=== PATIENT | female | born 1975 | race Caucasian/White ===

== ENCOUNTER 2018-05-24 14:28 | Inpatient (IN) | payer MEDICAID, OTHER ==
[2018-05-24] MEDS: diphenhydrAMINE 50 MG CAP PO (13:53)
[2018-05-24] MEDS: LORazepam 1 MG TAB PO (13:53)
[2018-05-24 14:40] LABS: HEMATOCRIT 43.9 % (36.0-47.0); HEMOGLOBIN 14.9 g/dl (12.0-15.5); MEAN CORPUSCULAR HEMOGLOBIN 30.4 pg (27.0-33.0); MEAN CORPUSCULAR HGB CONC 33.9 g/dl (32.0-36.5); MEAN CORPUSCULAR VOLUME 89.6 fl (80.0-96.0); PLATELET COUNT, AUTOMATED 424 10^3/uL (150-450); RED CELL DISTRIBUTION WIDTH 13.6 % (11.5-14.5); WHITE BLOOD COUNT 13.3 10^3/uL (4.0-10.0)
[2018-05-24 14:55] LABS: CONTROL LINE HCG INT CTR LINE PRESENT; HCG, SERUM QUALITATIVE NEGATIVE (NEGATIVE)
[2018-05-24 14:59] LABS: ACETAMINOPHEN LEVEL < 2.0 UG/ML (10.0-30.0); ALBUMIN/GLOBULIN RATIO 1.21 (1.00-1.93); ALKALINE PHOSPHATASE 83 U/L (45-117); ALT/SGPT 41 U/L (12-78); ANION GAP 7 MEQ/L (8-16); AST/SGOT 19 U/L (7-37); BILIRUBIN,DIRECT 0.1 MG/DL (0.0-0.2); BILIRUBIN,TOTAL 0.5 MG/DL (0.2-1.0); BLOOD UREA NITROGEN 10 MG/DL (7-18); CALCIUM LEVEL 9.1 MG/DL (8.5-10.1); CARBON DIOXIDE LEVEL 28 MEQ/L (21-32); CHLORIDE LEVEL 99 MEQ/L (98-107); CREATININE FOR GFR 0.88 MG/DL (0.55-1.30); GLOMERULAR FILTRATION RATE > 60.0 (>58); GLUCOSE, FASTING 145 MG/DL (70-100); POTASSIUM SERUM 3.5 MEQ/L (3.5-5.1); SODIUM LEVEL 134 MEQ/L (136-145); TOTAL PROTEIN 7.3 GM/DL (6.4-8.2)
[2018-05-24 15:04] LABS: AMPHETAMINES LEVEL URINE NEGATIVE (NEGATIVE); BARBITURATES URINE NEGATIVE (NEGATIVE); BENZODIAZEPINES URINE NEGATIVE (NEGATIVE); CANNABINOIDS URINE NEGATIVE (NEGATIVE); COCAINE METABOLITE URINE NEGATIVE (NEGATIVE); METHADONE URINE POSITIVE (NEGATIVE); OPIATES URINE POSITIVE (NEGATIVE); PHENCYCLIDINE URINE NEGATIVE (NEGATIVE)
[2018-05-24 16:10] LABS: FREE T4 0.65 NG/DL (0.76-1.46)
[2018-05-24] MEDS ORDERED: MOM 30ML SUSPENSION UDC PO (17:30)
[2018-05-24] MEDS ORDERED: ALBUTEROL 90 MCG/ACT 8GM HFA INHALER INH (19:45)
[2018-05-24] MEDS: SYMBICORT 160/4.5MCG INHALER 6GM INH (21:32)
[2018-05-24] MEDS: traZODone 50 MG TAB PO (21:32)
[2018-05-24] MEDS: risperiDONE 1 MG TAB PO (21:32)
[2018-05-24] MEDS: DIVALPROEX 500MG *ER* TAB PO (21:32)
[2018-05-24] MEDS: ATORVASTATIN 20 MG TAB PO (21:32)
[2018-05-24] MEDS: PANTOPRAZOLE 40MG TAB (PROTONIX) PO (21:32)
[2018-05-25] MEDS: LEVOTHYROXINE 150MCG TABLET (0.15MG) PO (06:33)
[2018-05-25] MEDS: NICOTINE 21MG/24HR 1 EA TRANSDERMAL TD (09:00)
[2018-05-25] MEDS: SYMBICORT 160/4.5MCG INHALER 6GM INH ×2 (09:43→20:38)
[2018-05-25] MEDS: DIVALPROEX 500MG *ER* TAB PO ×2 (09:43→20:36)
[2018-05-25] MEDS: PANTOPRAZOLE 40MG TAB (PROTONIX) PO ×2 (09:43→20:39)
[2018-05-25] MEDS: FAMOTIDINE 20 MG TAB PO (09:43)
[2018-05-25] MEDS: hydrOXYzine 50 MG TAB PO ×3 (16:17→20:39)
[2018-05-25] MEDS: traZODone 50 MG TAB PO ×2 (20:36→20:38)
[2018-05-25] MEDS: DIVALPROEX 250MG *ER* TAB PO (20:36)
[2018-05-25] MEDS: ATORVASTATIN 20 MG TAB PO (20:36)
[2018-05-25] MEDS: ACETAMINOPHEN TAB 650MG DOSE (2X325MG) PO (20:37)
[2018-05-25] MEDS: risperiDONE 1 MG TAB PO (20:38)
[2018-05-25] MEDS ORDERED: METHADONE 10 MG TAB (S0109) PO (21:45)
[2018-05-25] MEDS: METHADONE 5 MG TAB (S0109) PO (22:00)
[2018-05-26] MEDS: METHADONE 5 MG TAB (S0109) PO ×3 (00:17→11:14)
[2018-05-26] MEDS: OLANZapine ORAL DISINTEGRATING TAB 5MG PO ×4 (00:17→17:38)
[2018-05-26] MEDS: MAALOX 30 ML SUSP *UDC PO ×2 (00:17→18:29)
[2018-05-26] MEDS: LEVOTHYROXINE 150MCG TABLET (0.15MG) PO (05:44)
[2018-05-26] MEDS: ACETAMINOPHEN TAB 650MG DOSE (2X325MG) PO ×2 (05:48→20:15)
[2018-05-26 07:43] LABS: BASO % 0.5 % (0.0-1.0); EOS # 0.1 10^3/uL (0.0-0.50); EOS % 1.1 % (0.0-3.0); HEMATOCRIT 40.3 % (36.0-47.0); HEMOGLOBIN 13.9 g/dl (12.0-15.5); IMMATURE GRANULOCYTE % 0.4 % (0-3.0); LYMPH # 2.8 10^3/uL (1.5-4.5); LYMPH % 36.2 % (24.0-44.0); MEAN CORPUSCULAR HEMOGLOBIN 30.7 pg (27.0-33.0); MEAN CORPUSCULAR HGB CONC 34.5 g/dl (32.0-36.5); MONO # 0.7 10^3/uL (0.0-0.8); MONO % 8.8 % (0.0-5.0); NEUTROPHILS # 4.2 10^3/uL (1.8-7.7); PLATELET COUNT, AUTOMATED 370 10^3/uL (150-450); RED BLOOD COUNT 4.53 10^6/uL (4.00-5.40); RED CELL DISTRIBUTION WIDTH 13.9 % (11.5-14.5); WHITE BLOOD COUNT 7.9 10^3/uL (4.0-10.0)
[2018-05-26] MEDS: PANTOPRAZOLE 40MG TAB (PROTONIX) PO ×2 (08:06→20:12)
[2018-05-26] MEDS: FAMOTIDINE 20 MG TAB PO (08:06)
[2018-05-26] MEDS: DIVALPROEX 500MG *ER* TAB PO ×2 (08:07→20:12)
[2018-05-26] MEDS: NICOTINE 21MG/24HR 1 EA TRANSDERMAL TD ×2 (08:10→09:56)
[2018-05-26] MEDS: SYMBICORT 160/4.5MCG INHALER 6GM INH ×2 (08:10→20:13)
[2018-05-26 08:18] LABS: ALBUMIN 3.7 GM/DL (3.2-5.2); ALBUMIN/GLOBULIN RATIO 1.16 (1.00-1.93); ALKALINE PHOSPHATASE 69 U/L (45-117); ALT/SGPT 28 U/L (12-78); ANION GAP 10 MEQ/L (8-16); AST/SGOT 9 U/L (7-37); BILIRUBIN,TOTAL 0.3 MG/DL (0.2-1.0); BLOOD UREA NITROGEN 8 MG/DL (7-18); CALCIUM LEVEL 9.2 MG/DL (8.5-10.1); CARBON DIOXIDE LEVEL 28 MEQ/L (21-32); CHLORIDE LEVEL 103 MEQ/L (98-107); CREATININE FOR GFR 0.93 MG/DL (0.55-1.30); FREE THYROXINE INDEX 2.3 % (1.3-4.8); GLOMERULAR FILTRATION RATE > 60.0 (>58); GLUCOSE, FASTING 90 MG/DL (70-100); POTASSIUM SERUM 3.3 MEQ/L (3.5-5.1); SODIUM LEVEL 141 MEQ/L (136-145); T UPTAKE 34 % (30-39); THYROXINE (T4) 6.9 UG/DL (4.5-12.0); TOTAL PROTEIN 6.9 GM/DL (6.4-8.2)
[2018-05-26] MEDS: hydrOXYzine 50 MG TAB PO (13:59)
[2018-05-26] MEDS: ATORVASTATIN 20 MG TAB PO (20:12)
[2018-05-26] MEDS: DIVALPROEX 250MG *ER* TAB PO (20:12)
[2018-05-26] MEDS: risperiDONE 1 MG TAB PO (20:12)
[2018-05-26] MEDS: traZODone 50 MG TAB PO (20:12)
[2018-05-26] MEDS: METHADONE 10 MG TAB (S0109) PO (20:16)
[2018-05-27] MEDS: POTASSIUM CHLORIDE 10% LIQ 20 MEQ/15 ML UDC PO (00:15)
[2018-05-27] MEDS: LEVOTHYROXINE 150MCG TABLET (0.15MG) PO (06:04)
[2018-05-27] MEDS: SYMBICORT 160/4.5MCG INHALER 6GM INH ×2 (08:46→20:05)
[2018-05-27] MEDS: DIVALPROEX 500MG *ER* TAB PO ×2 (08:47→20:04)
[2018-05-27] MEDS: METHADONE 10 MG TAB (S0109) PO ×2 (08:47→20:05)
[2018-05-27] MEDS: FAMOTIDINE 20 MG TAB PO (08:47)
[2018-05-27] MEDS: PANTOPRAZOLE 40MG TAB (PROTONIX) PO ×2 (08:47→20:05)
[2018-05-27] MEDS: NICOTINE 21MG/24HR 1 EA TRANSDERMAL TD (08:47)
[2018-05-27 09:21] LABS: ANION GAP 10 MEQ/L (8-16); BLOOD UREA NITROGEN 7 MG/DL (7-18); CALCIUM LEVEL 9.6 MG/DL (8.5-10.1); CARBON DIOXIDE LEVEL 28 MEQ/L (21-32); CHLORIDE LEVEL 107 MEQ/L (98-107); CREATININE FOR GFR 1.09 MG/DL (0.55-1.30); GLOMERULAR FILTRATION RATE 57.8 (>58); GLUCOSE, FASTING 72 MG/DL (70-100); SODIUM LEVEL 145 MEQ/L (136-145)
[2018-05-27] MEDS: hydrOXYzine 50 MG TAB PO (11:55)
[2018-05-27] MEDS: OLANZapine ORAL DISINTEGRATING TAB 5MG PO (11:55)
[2018-05-27] MEDS: MAALOX 30 ML SUSP *UDC PO (12:33)
[2018-05-27] MEDS: risperiDONE 1 MG TAB PO (20:05)
[2018-05-27] MEDS: DIVALPROEX 250MG *ER* TAB PO (20:05)
[2018-05-27] MEDS: ATORVASTATIN 20 MG TAB PO (20:05)
[2018-05-28] MEDS: LEVOTHYROXINE 150MCG TABLET (0.15MG) PO (06:01)
[2018-05-28] MEDS: SYMBICORT 160/4.5MCG INHALER 6GM INH ×2 (08:17→20:09)
[2018-05-28] MEDS: NICOTINE 21MG/24HR 1 EA TRANSDERMAL TD (08:17)
[2018-05-28] MEDS: PANTOPRAZOLE 40MG TAB (PROTONIX) PO ×2 (08:18→20:07)
[2018-05-28] MEDS: DIVALPROEX 500MG *ER* TAB PO ×2 (08:18→20:08)
[2018-05-28] MEDS: METHADONE 10 MG TAB (S0109) PO ×2 (08:18→20:07)
[2018-05-28] MEDS: FAMOTIDINE 20 MG TAB PO (08:18)
[2018-05-28] MEDS: OLANZapine ORAL DISINTEGRATING TAB 5MG PO (11:01)
[2018-05-28] MEDS: hydrOXYzine 50 MG TAB PO (13:25)
[2018-05-28 14:18] LABS: ETHYL ALCOHOL (ETHANOL) < 0.003 % (0.000-0.010)
[2018-05-28] MEDS: ATORVASTATIN 20 MG TAB PO (20:07)
[2018-05-28] MEDS: DIVALPROEX 250MG *ER* TAB PO (20:07)
[2018-05-29] MEDS: LEVOTHYROXINE 150MCG TABLET (0.15MG) PO (06:00)
[2018-05-29] MEDS: FAMOTIDINE 20 MG TAB PO (08:01)
[2018-05-29] MEDS: DIVALPROEX 500MG *ER* TAB PO ×2 (08:01→20:08)
[2018-05-29] MEDS: METHADONE 10 MG TAB (S0109) PO ×2 (08:01→20:09)
[2018-05-29] MEDS: PANTOPRAZOLE 40MG TAB (PROTONIX) PO ×2 (08:01→20:08)
[2018-05-29] MEDS: SYMBICORT 160/4.5MCG INHALER 6GM INH ×2 (08:02→21:02)
[2018-05-29] MEDS: NICOTINE 21MG/24HR 1 EA TRANSDERMAL TD (08:03)
[2018-05-29] MEDS: ACETAMINOPHEN TAB 650MG DOSE (2X325MG) PO (11:02)
[2018-05-29] MEDS: OLANZapine ORAL DISINTEGRATING TAB 5MG PO ×2 (11:02→20:09)
[2018-05-29] MEDS: ARIPiprazole MONOHYDRATE 400 MG INJ (ABILIFY)(J0401) IM (11:40)
[2018-05-29] MEDS: hydrOXYzine 50 MG TAB PO (15:57)
[2018-05-29] MEDS: DIVALPROEX 250MG *ER* TAB PO (20:08)
[2018-05-29] MEDS: ATORVASTATIN 20 MG TAB PO (20:09)
[2018-05-29] MEDS: traZODone 50 MG TAB PO (20:09)
[2018-05-30] MEDS: LEVOTHYROXINE 150MCG TABLET (0.15MG) PO (06:24)
[2018-05-30] MEDS: DIVALPROEX 500MG *ER* TAB PO ×2 (08:12→20:08)
[2018-05-30] MEDS: SYMBICORT 160/4.5MCG INHALER 6GM INH ×2 (08:12→20:10)
[2018-05-30] MEDS: METHADONE 10 MG TAB (S0109) PO ×2 (08:12→20:08)
[2018-05-30] MEDS: PANTOPRAZOLE 40MG TAB (PROTONIX) PO ×2 (08:13→20:07)
[2018-05-30] MEDS: FAMOTIDINE 20 MG TAB PO (08:13)
[2018-05-30] MEDS: NICOTINE 21MG/24HR 1 EA TRANSDERMAL TD (08:13)
[2018-05-30] MEDS: OLANZapine ORAL DISINTEGRATING TAB 5MG PO ×2 (12:16→20:10)
[2018-05-30 12:54] LABS: VALPROIC ACID (DEPAKOTE) 94.1 UG/ML (50.0-100.0)
[2018-05-30] MEDS: DIVALPROEX 250MG *ER* TAB PO (20:07)
[2018-05-30] MEDS: ATORVASTATIN 20 MG TAB PO (20:07)
[2018-05-30] MEDS: traZODone 50 MG TAB PO (20:07)
[2018-05-30] MEDS: hydrOXYzine 50 MG TAB PO (21:50)
[2018-05-31] MEDS: LEVOTHYROXINE 150MCG TABLET (0.15MG) PO (06:18)
[2018-05-31] MEDS: OLANZapine ORAL DISINTEGRATING TAB 5MG PO (07:30)
[2018-05-31] MEDS: SYMBICORT 160/4.5MCG INHALER 6GM INH (08:01)
[2018-05-31] MEDS: NICOTINE 21MG/24HR 1 EA TRANSDERMAL TD (08:01)
[2018-05-31] MEDS: DIVALPROEX 500MG *ER* TAB PO (08:02)
[2018-05-31] MEDS: PANTOPRAZOLE 40MG TAB (PROTONIX) PO (08:02)
[2018-05-31] MEDS: FAMOTIDINE 20 MG TAB PO (08:02)
[2018-05-31] MEDS: METHADONE 10 MG TAB (S0109) PO (08:02)
== END 2018-05-31 13:00 | disposition home or self-care (01) | DRG 753 ==
LOC: M PSY 05-25 14:25 → M ED 14:28 → M ED INP 17:21 → M PSY 18:45
DX: F31.2 Bipolar disorder, current episode manic severe with psychotic features (principal); F11.10 Opioid abuse, uncomplicated; J45.909 Unspecified asthma, uncomplicated; K21.9 Gastro-esophageal reflux disease without esophagitis; E78.5 Hyperlipidemia, unspecified; E03.9 Hypothyroidism, unspecified; F10.10 Alcohol abuse, uncomplicated; K44.9 Diaphragmatic hernia without obstruction or gangrene; Z79.899 Other long term (current) drug therapy; Z88.0 Allergy status to penicillin; Z88.8 Allergy status to other drugs, medicaments and biological substances; Z88.2 Allergy status to sulfonamides; S82.62XD Displaced fracture of lateral malleolus of left fibula, subsequent encounter for closed fracture with routine healing; W17.89XD Other fall from one level to another, subsequent encounter; Y92.9 Unspecified place or not applicable

== ENCOUNTER 2018-07-01 17:06 | Inpatient (IN) | payer MEDICAID ==
[2018-07-01 18:12] LABS: HEMATOCRIT 38.2 % (36.0-47.0); HEMOGLOBIN 12.4 g/dl (12.0-15.5); MEAN CORPUSCULAR HEMOGLOBIN 30.5 pg (27.0-33.0); MEAN CORPUSCULAR HGB CONC 32.5 g/dl (32.0-36.5); MEAN CORPUSCULAR VOLUME 93.9 fl (80.0-96.0); PLATELET COUNT, AUTOMATED 295 10^3/uL (150-450); RED BLOOD COUNT 4.07 10^6/uL (4.00-5.40); RED CELL DISTRIBUTION WIDTH 14.8 % (11.5-14.5); WHITE BLOOD COUNT 7.5 10^3/uL (4.0-10.0)
[2018-07-01 18:27] LABS: AMPHETAMINES LEVEL URINE NEGATIVE (NEGATIVE); BARBITURATES URINE NEGATIVE (NEGATIVE); BENZODIAZEPINES URINE NEGATIVE (NEGATIVE); CANNABINOIDS URINE NEGATIVE (NEGATIVE); COCAINE METABOLITE URINE POSITIVE (NEGATIVE); METHADONE URINE NEGATIVE (NEGATIVE); OPIATES URINE POSITIVE (NEGATIVE); PHENCYCLIDINE URINE NEGATIVE (NEGATIVE)
[2018-07-01 18:39] LABS: ALBUMIN 3.6 GM/DL (3.2-5.2); ALBUMIN/GLOBULIN RATIO 1.33 (1.00-1.93); ALKALINE PHOSPHATASE 68 U/L (45-117); ALT/SGPT 20 U/L (12-78); ANION GAP 5 MEQ/L (8-16); AST/SGOT 15 U/L (7-37); BILIRUBIN,DIRECT 0.1 MG/DL (0.0-0.2); BILIRUBIN,TOTAL 0.4 MG/DL (0.2-1.0); BLOOD UREA NITROGEN 12 MG/DL (7-18); CALCIUM LEVEL 8.9 MG/DL (8.5-10.1); CARBON DIOXIDE LEVEL 27 MEQ/L (21-32); CHLORIDE LEVEL 108 MEQ/L (98-107); CREATININE FOR GFR 0.82 MG/DL (0.55-1.30); GLOMERULAR FILTRATION RATE > 60.0 (>58); GLUCOSE, FASTING 90 MG/DL (70-100); SODIUM LEVEL 140 MEQ/L (136-145); TOTAL PROTEIN 6.3 GM/DL (6.4-8.2)
[2018-07-01 18:43] LABS: CONTROL LINE HCG INT CTR LINE PRESENT; HCG, SERUM QUALITATIVE NEGATIVE (NEGATIVE)
[2018-07-01 18:44] LABS: ETHYL ALCOHOL (ETHANOL) < 0.003 % (0.000-0.010)
[2018-07-01 18:44] LABS: ACETAMINOPHEN LEVEL < 2.0 UG/ML (10.0-30.0); SALICYLATE LEVEL 3.1 MG/DL (5.0-30.0); THYROID STIMULATING HORMONE 0.964 uIU/ML (0.358-3.740)
[2018-07-01] MEDS ORDERED: MOM 30ML SUSPENSION UDC PO (23:00)
[2018-07-02] MEDS: OLANZapine ORAL DISINTEGRATING TAB 5MG PO ×2 (03:43→16:13)
[2018-07-02] MEDS ORDERED: ALBUTEROL 90 MCG/ACT 8GM HFA INHALER INH (11:00)
[2018-07-02] MEDS: SYMBICORT 160/4.5MCG INHALER 6GM INH ×2 (11:19→20:10)
[2018-07-02] MEDS: FAMOTIDINE 20 MG TAB PO ×2 (11:19→20:13)
[2018-07-02] MEDS: PANTOPRAZOLE 40MG TAB (PROTONIX) PO ×2 (11:20→20:11)
[2018-07-02] MEDS: ATORVASTATIN 20 MG TAB PO (11:20)
[2018-07-02] MEDS: LEVOTHYROXINE 150MCG TABLET (0.15MG) PO (11:20)
[2018-07-02] MEDS: METHADONE 10 MG TAB (S0109) PO (12:26)
[2018-07-02] MEDS: NICOTINE 21MG/24HR 1 EA TRANSDERMAL TD (17:29)
[2018-07-02] MEDS: traZODone 50 MG TAB PO (20:13)
[2018-07-02] MEDS: METHADONE 5 MG TAB (S0109) PO (22:39)
[2018-07-03] MEDS: ACETAMINOPHEN TAB 650MG DOSE (2X325MG) PO ×2 (03:30→13:02)
[2018-07-03] MEDS: LEVOTHYROXINE 150MCG TABLET (0.15MG) PO (06:45)
[2018-07-03] MEDS: SYMBICORT 160/4.5MCG INHALER 6GM INH ×2 (08:08→21:13)
[2018-07-03] MEDS: NICOTINE 21MG/24HR 1 EA TRANSDERMAL TD (08:08)
[2018-07-03] MEDS: ATORVASTATIN 20 MG TAB PO (08:09)
[2018-07-03] MEDS: FAMOTIDINE 20 MG TAB PO ×2 (08:09→21:13)
[2018-07-03] MEDS: METHADONE 10 MG TAB (S0109) PO ×2 (08:10→17:08)
[2018-07-03] MEDS: PANTOPRAZOLE 40MG TAB (PROTONIX) PO ×2 (08:10→21:12)
[2018-07-03] MEDS: MAALOX 30 ML SUSP *UDC PO (10:41)
[2018-07-03] MEDS: OLANZapine ORAL DISINTEGRATING TAB 5MG PO (10:51)
[2018-07-03] MEDS: cloNIDine 0.1 MG TAB PO ×2 (12:15→17:08)
[2018-07-03] MEDS: ONDANSETRON 4 MG TAB (S0181) PO ×2 (14:38→21:14)
[2018-07-03] MEDS: traZODone 50 MG TAB PO (21:12)
[2018-07-04] MEDS: cloNIDine 0.1 MG TAB PO ×5 (00:02→23:01)
[2018-07-04] MEDS: OLANZapine ORAL DISINTEGRATING TAB 5MG PO ×3 (00:03→23:32)
[2018-07-04] MEDS: LEVOTHYROXINE 150MCG TABLET (0.15MG) PO (06:16)
[2018-07-04] MEDS: FAMOTIDINE 20 MG TAB PO ×2 (09:42→21:13)
[2018-07-04] MEDS: PANTOPRAZOLE 40MG TAB (PROTONIX) PO ×2 (09:42→21:13)
[2018-07-04] MEDS: ATORVASTATIN 20 MG TAB PO (09:43)
[2018-07-04] MEDS: SYMBICORT 160/4.5MCG INHALER 6GM INH ×2 (09:44→21:13)
[2018-07-04] MEDS: NICOTINE 21MG/24HR 1 EA TRANSDERMAL TD (09:44)
[2018-07-04] MEDS: METHADONE 10 MG TAB (S0109) PO (09:45)
[2018-07-04] MEDS: traZODone 50 MG TAB PO (23:32)
[2018-07-05] MEDS: cloNIDine 0.1 MG TAB PO ×3 (06:00→17:21)
[2018-07-05] MEDS: LEVOTHYROXINE 150MCG TABLET (0.15MG) PO (06:30)
[2018-07-05] MEDS: OLANZapine ORAL DISINTEGRATING TAB 5MG PO ×3 (06:34→22:38)
[2018-07-05] MEDS: SYMBICORT 160/4.5MCG INHALER 6GM INH ×2 (08:05→21:20)
[2018-07-05] MEDS: FAMOTIDINE 20 MG TAB PO ×2 (08:05→21:19)
[2018-07-05] MEDS: PANTOPRAZOLE 40MG TAB (PROTONIX) PO ×2 (08:05→21:19)
[2018-07-05] MEDS: METHADONE 10 MG TAB (S0109) PO (08:05)
[2018-07-05] MEDS: ATORVASTATIN 20 MG TAB PO (08:05)
[2018-07-05] MEDS: NICOTINE 21MG/24HR 1 EA TRANSDERMAL TD (08:06)
[2018-07-05] MEDS: ARIPiprazole 10 MG TAB PO (21:19)
[2018-07-05] MEDS: MAALOX 30 ML SUSP *UDC PO (21:19)
[2018-07-05] MEDS: traZODone 50 MG TAB PO (22:38)
[2018-07-06] MEDS: cloNIDine 0.1 MG TAB PO ×4 (06:00→17:51)
[2018-07-06] MEDS: LEVOTHYROXINE 150MCG TABLET (0.15MG) PO (06:39)
[2018-07-06] MEDS: ARIPiprazole 10 MG TAB PO ×2 (08:30→21:52)
[2018-07-06] MEDS: METHADONE 10 MG TAB (S0109) PO (08:30)
[2018-07-06] MEDS: SYMBICORT 160/4.5MCG INHALER 6GM INH ×2 (08:30→21:52)
[2018-07-06] MEDS: ATORVASTATIN 20 MG TAB PO (08:30)
[2018-07-06] MEDS: PANTOPRAZOLE 40MG TAB (PROTONIX) PO ×2 (08:30→21:52)
[2018-07-06] MEDS: FAMOTIDINE 20 MG TAB PO ×2 (08:30→21:52)
[2018-07-06] MEDS: NICOTINE 21MG/24HR 1 EA TRANSDERMAL TD (08:34)
[2018-07-07] MEDS: traZODone 50 MG TAB PO ×2 (01:12→21:59)
[2018-07-07] MEDS: cloNIDine 0.1 MG TAB PO ×4 (06:00→17:44)
[2018-07-07] MEDS: LEVOTHYROXINE 150MCG TABLET (0.15MG) PO (06:07)
[2018-07-07] MEDS: FAMOTIDINE 20 MG TAB PO ×2 (08:52→21:58)
[2018-07-07] MEDS: ATORVASTATIN 20 MG TAB PO (08:52)
[2018-07-07] MEDS: PANTOPRAZOLE 40MG TAB (PROTONIX) PO ×2 (08:53→21:58)
[2018-07-07] MEDS: METHADONE 10 MG TAB (S0109) PO (08:53)
[2018-07-07] MEDS: ARIPiprazole 10 MG TAB PO ×2 (08:53→21:58)
[2018-07-07] MEDS: SYMBICORT 160/4.5MCG INHALER 6GM INH ×2 (08:53→22:00)
[2018-07-07] MEDS: NICOTINE 21MG/24HR 1 EA TRANSDERMAL TD (08:54)
[2018-07-07] MEDS: OLANZapine ORAL DISINTEGRATING TAB 5MG PO (17:43)
[2018-07-08] MEDS: cloNIDine 0.1 MG TAB PO ×6 (06:00→23:22)
[2018-07-08] MEDS: LEVOTHYROXINE 150MCG TABLET (0.15MG) PO (06:07)
[2018-07-08] MEDS: OLANZapine ORAL DISINTEGRATING TAB 5MG PO ×2 (06:52→17:52)
[2018-07-08] MEDS: METHADONE 10 MG TAB (S0109) PO (08:52)
[2018-07-08] MEDS: PANTOPRAZOLE 40MG TAB (PROTONIX) PO ×2 (08:52→21:50)
[2018-07-08] MEDS: ARIPiprazole 10 MG TAB PO ×2 (08:52→21:52)
[2018-07-08] MEDS: FAMOTIDINE 20 MG TAB PO ×2 (08:52→21:50)
[2018-07-08] MEDS: ATORVASTATIN 20 MG TAB PO (08:52)
[2018-07-08] MEDS: SYMBICORT 160/4.5MCG INHALER 6GM INH ×2 (08:53→21:52)
[2018-07-08] MEDS: NICOTINE 21MG/24HR 1 EA TRANSDERMAL TD (08:54)
[2018-07-08] MEDS: ARIPiprazole MONOHYDRATE 400 MG INJ (ABILIFY)(J0401) IM (14:39)
[2018-07-08] MEDS: traZODone 100 MG TAB PO (23:18)
[2018-07-09] MEDS: cloNIDine 0.1 MG TAB PO ×4 (06:00→23:56)
[2018-07-09] MEDS: LEVOTHYROXINE 150MCG TABLET (0.15MG) PO (06:11)
[2018-07-09] MEDS: SYMBICORT 160/4.5MCG INHALER 6GM INH ×2 (08:21→21:42)
[2018-07-09] MEDS: NICOTINE 21MG/24HR 1 EA TRANSDERMAL TD (08:22)
[2018-07-09] MEDS: PANTOPRAZOLE 40MG TAB (PROTONIX) PO ×2 (08:23→21:41)
[2018-07-09] MEDS: ACETAMINOPHEN TAB 650MG DOSE (2X325MG) PO (08:23)
[2018-07-09] MEDS: ARIPiprazole 10 MG TAB PO ×2 (08:24→21:41)
[2018-07-09] MEDS: METHADONE 5 MG TAB (S0109) PO (08:24)
[2018-07-09] MEDS: ATORVASTATIN 20 MG TAB PO (08:24)
[2018-07-09] MEDS: FAMOTIDINE 20 MG TAB PO ×2 (08:24→21:41)
[2018-07-09] MEDS: OLANZapine ORAL DISINTEGRATING TAB 5MG PO ×2 (14:31→23:54)
[2018-07-09] MEDS: PILL CRUSHER/CUTTER 1 EACH XX (21:43)
[2018-07-09] MEDS: traZODone 100 MG TAB PO (23:54)
[2018-07-10] MEDS: cloNIDine 0.1 MG TAB PO (06:00)
[2018-07-10] MEDS: LEVOTHYROXINE 150MCG TABLET (0.15MG) PO (06:38)
[2018-07-10] MEDS: SYMBICORT 160/4.5MCG INHALER 6GM INH (09:10)
[2018-07-10] MEDS: NICOTINE 21MG/24HR 1 EA TRANSDERMAL TD (09:11)
[2018-07-10] MEDS: FAMOTIDINE 20 MG TAB PO (09:12)
[2018-07-10] MEDS: METHADONE 5 MG TAB (S0109) PO (09:12)
[2018-07-10] MEDS: ARIPiprazole 10 MG TAB PO (09:14)
[2018-07-10] MEDS: PANTOPRAZOLE 40MG TAB (PROTONIX) PO (09:14)
[2018-07-10] MEDS: ATORVASTATIN 20 MG TAB PO (09:14)
== END 2018-07-10 11:06 | disposition home or self-care (01) | DRG 750 ==
LOC: M PSY 07-02 03:05 → M ED 17:06 → M ED INP 22:59
DX: F25.8 Other schizoaffective disorders (principal); F11.23 Opioid dependence with withdrawal; J45.909 Unspecified asthma, uncomplicated; K21.9 Gastro-esophageal reflux disease without esophagitis; E78.5 Hyperlipidemia, unspecified; E03.9 Hypothyroidism, unspecified; F17.210 Nicotine dependence, cigarettes, uncomplicated; Z79.899 Other long term (current) drug therapy; Z88.0 Allergy status to penicillin; Z88.2 Allergy status to sulfonamides; Z88.8 Allergy status to other drugs, medicaments and biological substances